=== PATIENT | female | born 1945 | race Caucasian/White ===

== ENCOUNTER 2016-12-14 07:43 | Day surgery (SDC) | payer BC, MEDICARE ==
[~2016-12-14 07:43] MED LIST: ACETAMINOPHEN 1,000 MG/100 ML BTL IV ONE; CEFAZOLIN 2 Gram 2 GM/50 ML BAG IVPB ONE; FAMOTIDINE 20MG TABLET PO ONE; MECLIZINE 25 MG TABLET PO ONE; METOCLOPRAMIDE 10 MG TABLET PO ONE
[2016-12-14 08:11] LABS: BASO % 0.3 % (0-6); EOS % 2.2 % (0-6); GRAN % 65.1 % (47-80); HEMATOCRIT 39.4 % (35.0-47.0); HEMOGLOBIN 12.5 gm/dl (11.6-16.0); LYMPH % 24.4 % (16-45); MEAN CORPUSCULAR HEMOGLOBIN 29.8 pg (27-33); MEAN CORPUSCULAR HGB CONC 31.7 g/dl (32-36); PLATELET COUNT 327 K/uL (130-400); RED BLOOD COUNT 4.19 M/uL (3.80-5.40); RED CELL DISTRIBUTION WIDTH 13.2 % (11.5-14.5); WHITE BLOOD COUNT W/O DIFF 7.4 K/uL (4.2-12.2)
[2016-12-14 08:18] LABS: BLOOD UREA NITROGEN 13 mg/dL (7-17); CREATININE 0.7 mg/dL (0.52-1.04); EST GLOMERULAR FILTRATION RATE > 60 ml/min; GLUCOSE,RANDOM 100 mg/dL (70-110)
[2016-12-14] MEDS ORDERED: SEVOFLURANE 250 ML INH ONE (12:29)
[2016-12-14] MEDS ORDERED: LIDOCAINE 2% MDV (20MG/ML) 20ML VIAL IV ONE (12:29)
[2016-12-14] MEDS ORDERED: ONDANSETRON HCL IV 4 MG/2 ML VIAL IVP ONE (12:29)
[2016-12-14] MEDS ORDERED: MEPERIDINE 50 MG/1 ML VIAL IVP ONE (12:29)
[2016-12-14] MEDS ORDERED: KETOROLAC 30 MG/ML VIAL IVP ONE (12:29)
[2016-12-14] MEDS ORDERED: PROPOFOL 10 MG/ML VIAL IV ONE (12:29)
[2016-12-14] MEDS ORDERED: HYDROCODONE/APAP 5/325MG TABLET PO ONE (12:50)
--- NOTE | 2016-12-18 18:32 | Operative Note ---
DATE OF SURGERY: 12/14/2016 REFERRING PROVIDER: Silas Moy MD PREOPERATIVE DIAGNOSIS: Displaced fracture of the left distal radius and ulna. POSTOPERATIVE DIAGNOSIS: Displaced fracture of the left distal radius and ulna. OPERATIVE PROCEDURE: Closed reduction and percutaneous pinning, left distal radius. DESCRIPTION: This 70-year-old female was taken to the operating room and placed in the supine position on the operating room table. General anesthesia was induced. The splint previously placed was removed. The patient was noted to have a pressure sore on the flexor surface of the thumb, just above the metacarpal phalangeal flexor crease. This was approximately 0.75 cm in diameter. It was not open, a well-marginated closed lesion. This was well protected during the operative procedure. The image intensifier was brought into the operative field after the patient had been administered general anesthetic, and closed reduction of the wrist was accomplished. Image intensifier was used to confirm near-anatomic alignment of the fracture fragments, and subsequently the left wrist was then prepped with Hibiclens and draped in the usual sterile fashion. We then were able to manipulate the wrist into near-anatomic alignment, and we were able to get the wrist back out to length. Because of the excessive shortening that was present, and two 0.054 K-wires were advanced from the radial aspect of the wrist across the radial styloid and into the medial cortex of the distal radius to solidify the pin position. The second pin was advanced in a similar fashion, and the image intensifier was again used to confirm the satisfactory position and alignment of the fracture fragments as well as the position of the pins. The scapholunate articulation appeared to be reduced. The tip of the radial styloid was nondisplaced. Subsequently, the pins were cut off and bent over and an AP plaster mold was applied after sterile dressings had been applied, and the patient was taken to the recovery room in satisfactory condition. GROSS PATHOLOGY: This patient demonstrated a comminuted fracture of the distal radius and ulna. She also had injury to her scapholunate ligament, presuming that this was a new injury, although that is not certain, but in any event, the closed reduction was accomplished due to significant radial shortening. This was then reduced back to normal position, and 2 K-wires were advanced across the fracture site as described above. CC: Silas Moy MD [facility]
== END 2016-12-14 11:28 | disposition home or self-care (01) ==
LOC: SUR 07:43
PROVIDERS: ATTEND Orthopaedic Surgery
DX: S52.692A Other fracture of lower end of left ulna, initial encounter for closed fracture (principal); I10 Essential (primary) hypertension
CPT/HCPCS: 76000; 80048; 85025; 93005; 93010; J1885; J2405